=== PATIENT | female | born 1985 | race Caucasian/White ===

== ENCOUNTER 2023-01-01 01:00 | Observation (INO) | payer OTHER ==
[~2023-01-01] VITALS: Ht 154.9 cm; Wt 73.9 kg
[2023-01-01 02:44] VITALS: BP 119/74
[2023-01-01 06:40] LABS: BILIRUBIN,URINE NEGATIVE (NEGATIVE); BLOOD, URINE NEGATIVE (NEGATIVE); COLOR,URINE YELLOW (YELLOW); LEUKOCYTE ESTERASE ,URINE TRACE (NEGATIVE); NITRITE, URINE NEGATIVE (NEGATIVE); UGLUCOSE NEGATIVE (NEGATIVE)
[2023-01-01 06:45] LABS: APPEARANCE,URINE SLIGHTLY HAZY (CLEAR)
[2023-01-01 06:47] LABS: RBC,URINE 0-5 /HPF (0-5)
== END 2023-01-01 07:48 | disposition home or self-care (01) ==
LOC: MLD 01:00
PROVIDERS: ADMIT Obstetrics & Gynecology; ATTEND Obstetrics & Gynecology
DX: O98.513 Other viral diseases complicating pregnancy, third trimester (principal); U07.1 COVID-19; O26.893 Other specified pregnancy related conditions, third trimester; R10.9 Unspecified abdominal pain; Z3A.40 40 weeks gestation of pregnancy
CPT/HCPCS: 81001; 87086; 87426; G0378